=== PATIENT | female | born 1970 | race Caucasian/White ===

== ENCOUNTER 2019-05-12 02:09 | Emergency (ER) | payer OTHER ==
[~2019-05-12] VITALS: Ht 170.2 cm; Wt 58.9 kg
[2019-05-12 02:12] VITALS: BP 131/67
--- NOTE | 2019-05-12 02:39 | NUR ---
PT PRESENTS FOR CONSTIPATION. PT REPORTS LAST SIGNIFICANT BM WAS 14 DAYS AGO, SMALL AMOUNT TODAY. PT REPORTS HAVING COLONOSCOPY AT THE BEGINNING OF APRIL AND HAS HAD TROUBLE HAVING A BM EVER SINCE. PT TAKING MAG CITRATE AND SENNA.
[2019-05-12 02:57] LABS: BASOPHILS # (AUTO) 0.09 x10^3/uL (0-0.1); BASOPHILS % (AUTO) 1 % (0-1); EOSINOPHILS # (AUTO) 0.13 x10^3/uL (0-0.4); EOSINOPHILS % (AUTO) 2 % (1-7); LYMPHOCYTES # (AUTO) 3.06 x10^3/uL (1-3.4); LYMPHOCYTES % (AUTO) 42 % (22-44); MD NO; MEAN CORPUSCULAR HEMOGLOBIN 29.9 pg (27.0-34.8); MEAN CORPUSCULAR HGB CONC 33.1 g/dL (32.4-35.8); MEAN CORPUSCULAR VOLUME 90.3 fL (80-100); MEAN PLATELET VOLUME 8.5 fL (7.4-10.4); MONOCYTES # (AUTO) 0.55 x10^3/uL (0.2-0.8); MONOCYTES % (AUTO) 8 % (2-9); NEUTROPHILS % (AUTO) 47 % (42-75); PLATELET COUNT 305 x10^3/uL (130-400); RED BLOOD COUNT 4.38 x10^6/uL (3.82-5.3); RED CELL DISTRIBUTION WIDTH 13.2 % (9.6-15.2)
[2019-05-12] MEDS ORDERED: PINK LADY ENEMA 490 ML BOTTLE PR ONE (03:00)
[2019-05-12 03:07] LABS: ALANINE AMINOTRANSFERASE 19 U/L (12-78); ALBUMIN 4.1 g/dL (3.4-5.0); ANION GAP 7 mmol/L (5-15); CALCIUM 9.3 mg/dL (8.5-10.1); CHLORIDE 107 mmol/L (98-107); CREATININE 0.81 mg/dL (0.55-1.02)
[2019-05-12 03:10] LABS: ALKALINE PHOSPHATASE 51 U/L (45-117); BILIRUBIN,TOTAL 0.3 mg/dL (0.2-1.0); TOTAL PROTEIN 7.8 g/dL (6.4-8.2)
--- NOTE | 2019-05-12 03:40 | NUR ---
ADMINISTERED P[employer]Y ENEMA. PT TOLERATED WELL.
--- NOTE | 2019-05-12 04:03 | NUR ---
PT HAD SIGNIFICANT BM AND IS NOW FEELING BETTER.
== END 2019-05-12 04:16 | disposition home or self-care (01) ==
LOC: ED 03:14
DX: K59.00 Constipation, unspecified (principal)
CPT/HCPCS: 36415; 74021; 80053; 83690; 85025; 99284